=== PATIENT | male | born 1995 | race African-American/Black ===

== ENCOUNTER 2016-12-12 14:29 | Emergency (ER) | payer MEDICAID ==
[~2016-12-12] VITALS: Ht 170.2 cm; Wt 70.0 kg
[2016-12-12 18:34] LABS: HEMATOCRIT 44.9 % (42.0-52.0); MEAN CORPUSCULAR HEMOGLOBIN 28.6 pg (28.0-32.0); MEAN CORPUSCULAR HGB CONC 33.3 g/dL (31.0-37.0); MEAN CORPUSCULAR VOLUME 85.9 fL (80.0-94.0); PLATELET 256 x1000/uL (130-400); RED BLOOD CELL COUNT 5.22 mill/uL (4.7-6.1); RED CELL DISTRIBUTION WIDTH 14.6 % (11.6-14.6)
[2016-12-12] MEDS ORDERED: IBUPROFEN 800MG TABLET PO ONE (18:45)
[2016-12-12 18:53] LABS: ANION GAP 17; CALCIUM 9.6 mg/dL (8.5-10.1); CARBON DIOXIDE 27 mEq/L (21-32); CHLORIDE 101 mEq/L (98-107); INDEX HEMOLYSI 1 (1-3); INDEX ICTERIC 1 (1-4); INDEX LIPEMIC 1 (1-3); TROPONIN I < 0.02 ng/mL (0.00-0.04); UREA NITROGEN BLOOD 9 mg/dL (7-21); eGFR > 60 mL/min (>60)
[2016-12-12 20:34] VITALS: BP 122/80
== END 2016-12-12 20:34 | disposition home or self-care (01) ==
LOC: ER 17:48
DX: R07.89 Other chest pain (principal)
CPT/HCPCS: 36415; 71010; 80048; 84484; 85027; 85379; 93005; 99285